=== PATIENT | male | born 1955 | race Caucasian/White ===

== ENCOUNTER → 2020-09-06 09:56 | Outpatient (BNVA) | payer BC, SELFPAY | PROVIDERS: Visit Provider Family Medicine | DX: R33.9 Retention of urine, unspecified (principal); R39.9 Unspecified symptoms and signs involving the genitourinary system; Z46.6 Encounter for fitting and adjustment of urinary device; N40.1 Benign prostatic hyperplasia with lower urinary tract symptoms | CPT/HCPCS: 81000; 87086 ==

== ENCOUNTER 2020-09-08 05:11 | Emergency (ER) | payer BC, SELFPAY ==
[2020-09-08 05:18] VITALS: BP 120/72; PULSE 86; RESP 17; TEMP 36.6; O2SAT 98; BMI 20.9
--- NOTE | 2020-09-08 05:22 | ED_ITS ---
HPI - Male Genitourinary General: Chief complaint: Urogenital-Male Stated complaint: catheter issues Time Seen by Provider: 09/08/20 05:18 Source: patient Mode of arrival: ambulatory Limitations: no limitations History of Present Illness: HPI Narrative: 65-year-old male who had a santiago placed 2 days ago for retention. He states he has not followed up with urologist yet but states that through the night he believes his catheter is clogged. He states he has had no output out of the catheter he is having pain over his bladder. States pain is a 6 out of 10 is sharp in nature. Denies any worsening improving factors. He has a history of enlarged prostate in the past. Associated symptoms: Deny nausea or vomiting Review of Systems Const: Denies: fever(s), chills, body aches or change in appetite Eyes: Denies: blurry vision or eye discomfort ENMT: Denies: throat pain or dental pain Card: Denies: chest pain Resp: Denies: dyspnea GI: Denies: abdominal pain, nausea, vomiting or diarrhea : Reports: difficulty urinating Musc: Denies: neck pain or back pain Skin/Breast: Denies: rash Neuro: Denies: headache(s) Psych: Denies: depression Checo/Lymph: Denies: easy bruising All/Imm: Denies: urticaria PFSH ED PFSH: Medical History Enlarged prostate Social History Smoking and tobacco status: never smoked Physical Exam Const: COMMON NORMALS: no acute distress, patient oriented x3 and healthy appearing HENMT: COMMON NORMALS: normocephalic and atraumatic HEAD & SCALP: normocephalic and atraumatic Eye: COMMON NORMALS: Equal, round and reactive pupils present and EOMs intact bilaterally PUPIL: Yes Equal, round and reactive pupils present Neck/C-Spine: COMMON NORMALS: full ROM and supple Chest: COMMONS NORMALS: normal inspection of the chest and normal palpation of entire chest wall Resp: COMMON NORMALS: normal respiratory effort, No retractions, No use of accessory muscles and clear to auscultation bilaterally AUSCULTATION: clear to auscultation bilaterally Cardio: COMMON NORMALS: regular rate, regular rhythm and No murmurs present (Cardio) RATE: regular rate RHYTHM: regular rhythm GI: COMMON NORMALS: Normal to inspection, nondistended, normoactive bowel sounds present, Soft to palpation, non-tender and no masses PALPATION: Yes Soft to palpation : OTHER: Santiago in place Santiago bag is empty currently Extremity: COMMON NORMALS: normal to inspection and full ROM Neuro: COMMON NORMALS: patient oriented x3, moves all extremities and no focal motor deficits Psych: COMMON NORMALS: mental status grossly normal, Normal thought process present and cooperative THOUGHT PROCESS: Normal thought process present Skin: COMMON NORMALS: no rashes or lesions noted and no wounds GENERAL SKIN EXAM: no rashes or lesions noted Course Vital Signs: Vital signs: Vital Signs Temperature 97.9 F 09/08/20 05:18 Pulse Rate 84 09/08/20 06:39 Respiratory Rate 18 09/08/20 06:39 Blood Pressure 119/71 09/08/20 06:39 Pulse Oximetry 99 09/08/20 06:39 MDM - Male MDM Narrative: Medical decision making narrative: Patient presents here with urinary retention and his Santiago no longer working. Try to flush the Santiago in Santiago still would not function. Patient had a new Santiago placed with good urine output. He stable for discharge is to follow-up with urology. Discharge Plan Discharge Patient Disposition: Home Clinical Impression: Acute urinary retention Complication of Santiago catheter Qualifiers: Encounter type: subsequent encounter Qualified Code(s): T83.9XXD - Unspecified complication of genitourinary prosthetic device, implant and graft, subsequent encounter Condition: Stable Prescriptions: No Action tamsulosin 0.4 mg capsule 0.4 mg PO DAILY RF: 0 sulfamethoxazole-trimethoprim [Bactrim DS] 800-160 mg tablet 1 tab PO BID Qty: 10 RF: 0 phenazopyridine [Pyridium] 200 mg tablet 200 mg PO TID PRN (Reason: pain) Qty: 20 RF: 0 oxybutynin chloride [Ditropan XL] 10 mg tablet extended release 24hr 10 mg PO DAILY Qty: 10 RF: 0 Hold Instructions: Doctor's Order Discharge Orders: Discharge ED (Routine); Ordered 09/08/20 Ordered By: Ivory Wilde Discharge Diet: Advance as tolerated Discharge Activity: Resume usual activity Patient Instructions: Santiago Catheter Placement and Care (ED) Coding Level of Care Code 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
[2020-09-08 06:39] VITALS: BP 119/71; PULSE 84; RESP 18; O2SAT 99
--- NOTE | 2020-09-09 09:35 | DCPLANNER ---
marine service manager had message to schedule a follow up appointment for patient with Dr. Arreaga. marine service manager called the office of Dr. Arreaga, spoke with Mariola, gave clinic patients information. marine service manager was told that patients information would be printed and reviewed. Clinic will call patient with appointment information.
--- NOTE | 2020-09-14 11:59 | DCPLANNER ---
Patient had a follow up appointment scheduled for 09.09.[address] Arreaga - patient did attend appointment.
== END 2020-09-08 06:39 | disposition home or self-care (01) ==
PROVIDERS: Emergency Provider Emergency Medicine
DX: T83.9XXA Unspecified complication of genitourinary prosthetic device, implant and graft, initial encounter (principal); R33.9 Retention of urine, unspecified
CPT/HCPCS: 51702; 99282